=== PATIENT | female | born 1960 | race Caucasian/White ===

== ENCOUNTER 2018-05-06 20:11 | Emergency (ER) | payer OTHER ==
--- OUTSIDE RECORDS SUMMARY | 2018-05-06 20:14 | XMS REPORT | Clinical Summary ---
:1960 Author Organization [facility] Address [address] [place] [address] Care Team Providers Name Role Phone Nicole Gates MD Primary Care Provider Unavailable Allergies No Known Allergies Current Medications Prescription Sig. Disp. Refills Start Date End Date Status levothyroxine Take 1 tablet 90 tablet 3 05/28/2017 Active (SYNTHROID, LEVOXYL) (125 mcg 125 mcg total) by tabletIndications: mouth daily. Other specified hypothyroidism rosuvastatin Take 1 tablet 90 tablet 3 06/03/2017 Active (CRESTOR) 5 MG (5 mg total) tabletIndications: by mouth Dyslipidemia daily. ERGOCALCIFEROL, Take by mouth. Active VITAMIN D2, (VITAMIN D2 ORAL)Indications: Well woman exam CALCIUM Take by mouth. Active CARBONATE/VITAMIN D3 (CALCIUM 500 + D ORAL)Indications: Well woman exam nystatin-triamcinolo Apply 30 g 0 07/29/2017 Active ne (MYCOLOG II) topically 2 8 100,000-0.1 unit/g-% (two) times a creamIndications: day. Yeast infection nitrofurantoin, Macrobid 14 capsule 0 01/02/2016 Discontinued macrocrystal-monohyd generic: Oral: 7 rate, (MACROBID) 100 100 mg twice MG capsule daily for 7 days levothyroxine Take 1 tablet 90 tablet 0 03/21/2017 Discontinued (SYNTHROID, LEVOXYL) (125 mcg 7 125 mcg total) by tabletIndications: mouth once Hypothyroidism daily. Needs office visit rosuvastatin Take 1 tablet 10 tablet 0 04/17/2017 Discontinued (CRESTOR) 5 MG (5 mg total) 7 tabletIndications: by mouth every Dyslipidemia other day. Needs office visit rosuvastatin Take 1 tablet 90 tablet 3 05/28/2017 Discontinued (CRESTOR) 5 MG (5 mg total) 7 tabletIndications: by mouth every Dyslipidemia other day. Active Problems Problem Noted Date Dyslipidemia 05/28/2017 Hypothyroidism 04/07/2014 Schatzki's ring 09/22/2004 Hyperlipidemia Resolved Problems Problem Noted Date Resolved Date Well woman exam 07/29/2017 08/01/2017 Idiopathic familial dystonia 06/09/2015 05/28/2017 Cramp of limb 04/07/2015 05/28/2017 Multiple-type hyperlipidemia 04/07/2015 05/28/2017 Indigestion 04/07/2014 05/28/2017 Terminal esophageal web 04/07/2014 05/28/2017 Encounters Date Type Specialty Care Team Description 05/04/2018 Telephone Pain Medicine Hema Sharif MA 04/23/2018 Office Visit Pain Medicine Jes[place], Lumbar radiculopathy ( Primary Dx); Aleksander Spangler, Other chronic pain; Neuropathic pain; Spinal stenosis of lumbosacral region 04/09/2018 Procedure visit Pain Medicine [place], Lumbar radiculopathy Aleksander Spangler (Primary Dx) 03/31/2018 Office Visit Pain Medicine [place], Lumbar radiculopathy ( Primary Dx); Aleksander Spangler Other chronic pain; Spinal stenosis of lumbosacral region; Neuropathic pain 03/17/2018 Procedure visit Pain Medicine [place], Lumbar radiculopathy Aleksander Spangler (Primary Dx) 03/10/2018 Office Visit Pain Medicine Rocco, Lumbar radiculopathy ( Primary Dx); Yovani Maldonado MD Other chronic pain; [place], Spinal stenosis of lumbosacral region Aleksander Spangler MD 03/06/2018 Telephone Sports Medicine Marisabel Peguero MA 03/06/2018 Orders Only Sports Medicine [place], Lumbar radiculitis ( Primary Dx); Yovani Maldonado MD Lumbar radiculopathy 03/04/2018 Office Visit Ortho Sports Medicine [place], Lumbar radiculopathy Yovani Maldonado MD (Primary Dx) 03/04/2018 Procedure Pass Radiology 11/26/2017 Office Visit Ortho Sports Medicine [place], Sacroiliac joint dysfunction (Primary Dx); Yovani Maldonado MD Left foot pain; Osteoarthritis of left midfoot 10/09/2017 Documentation Orthopedic Surgery Yovani Valiente MD 10/09/2017 Documentation Orthopedic Surgery Yovani Valiente MD 10/02/2017 Office Visit Sports Medicine [place]occo, Sacroiliac joint dysfunction (Primary Dx); Yovani Maldonado MD Left low back pain, unspecified chronicity, with sciatica presence unspecified 09/02/2017 Office Visit Orthopedic Surgery Liza, Right rotator cuff Vernon C., tendonitis (Primary MD Dx) 09/02/2017 Orders Only Orthopedic Surgery Tu, Left shoulder pain, Nickarr unspecified chronicity (Primary Dx) 07/29/2017 Office Visit Orthopedic Surgery Liza, Lateral Vernon C., epicondylitis, left MD elbow (Primary Dx) 07/29/2017 Office Visit Obstetrics and Dwight, Well woman exam (Primary Dx) ; Gynecology [place], Vulvar itching 07/29/2017 Telephone Obstetrics and Dwight, Yeast infection Gynecology Palak Antony (Primary Dx) 07/29/2017 Orders Only Orthopedic Surgery Tu, Left elbow pain Nickarr (Primary Dx) 07/22/2017 Telephone Cardiology Fortunato Gonzalez MA 07/16/2017 Hospital Encounter Procedural Cardiology Jose, Abnormal stress ECG with treadmill; Ziggy Paris Metabolic syndrome; Hyperlipidemia, unspecified hyperlipidemia type 07/16/2017 Office Visit Cardiology Kody, Metabolic syndrome (Primary Dx); Nicole Abnormal stress ECG with treadmill; MD Dawson Hyperlipidemia, unspecified hyperlipidemia type Ziggy Garcia MD 06/25/2017 Hospital Encounter Radiology Kody, Screening for Nicole osteoporosis MD Dawson 06/23/2017 Documentation Gastroenterology Maribel Rodriguez MA 06/17/2017 Telephone Family Medicine Nicole Gates MD 06/16/2017 Telephone Family Medicine Kody Abnormal stress ECG Nicole with treadmill MD Dawson (Primary Dx) 06/16/2017 Telephone Gastroenterology Mauricio Mac MD 06/02/2017 Telephone Internal Medicine Tomasa Mcdaniels MA 05/28/2017 Office Visit Family Medicine Kody, Well adult exam (Primary Dx) ; Nicole Other specified hypothyroidism; MD Dawson Dyslipidemia; Encounter for special screening examination for cardiovascular disorder ; Screening mammogram, encounter for; Screening for osteoporosis 05/28/2017 Telephone Family Medicine Nicole Gates MD after 05/05/2017 Immunizations Name Dates Previously Given Next Due Tdap 04/07/2014 Family History Medical History Relation Name Comments Diabetes Father Kwesi Type 2 Leukemia Father Kwesi Diabetes Maternal Grandfather Wellington Type 2 Stroke Maternal Grandfather Wellington Diabetes Mother Rachel Mojica Type 2 Diabetes Sister Rachel Granados Diabetes Sister Shari Type1 Relation Name Status Comments Father Kwesi Maternal Grandfather Wellington Maternal Grandmother Mother Rachel Mojica Alive Sister Rachel Mccarthy Social History Tobacco Use Types Packs/Day Years Used Date Never Smoker Smokeless Tobacco: Never Used Tobacco Cessation: Counseling Given: Yes Alcohol Use Drinks/Week oz/Week Comments No Sex Assigned at Date Recorded Not on file Last Filed Vital Signs Vital Sign Reading Time Taken Blood Pressure 109/71 04/23/2018 2:22 PM CDT Pulse 90 04/23/2018 2:22 PM CDT Temperature 36.6 C (97.9 F) 05/28/2017 8:12 AM CDT Respiratory Rate 14 05/28/2017 8:12 AM CDT Oxygen Saturation 97% 07/16/2017 4:53 PM CDT Inhaled Oxygen Concentration - - Weight 82 kg (180 lb 12.8 oz) 04/23/2018 2:22 PM CDT Height 160 cm (5' 3") 07/29/2017 11:17 AM APPLICATION SYSTEMS ADMINISTRATOR Body Mass Index 32.03 04/23/2018 2:22 PM CDT Plan of Treatment Date Type Specialty Care Team Description 05/12/2018 Procedure visit Pain Medicine Aleksander Ba MD [address] [address] Health Maintenance Due Date Last Done Comments SHINGRIX VACCINE (#1) 2008 INFLUENZA VACCINE 04/22/2018 BREAST CANCER SCREENING 09/17/2018 09/17/2016 CERVICAL CANCER SCREENING 07/29/2020 07/29/2017, 09/22/2013 COLON CANCER SCREENING 09/22/2021 09/22/2011 Procedures Procedure Name Priority Date/Time Associated Diagnosis Comments MRI LUMBAR SPINE WO Routine 03/05/2018 1:22 Lumbar radiculopathy Results for this CONTRAST PM CDT procedure are in the results section. XR FOOT 3+ VW LEFT Routine 11/26/2017 9:43 Left foot pain Results for this AM APPLICATION SYSTEMS ADMINISTRATOR procedure are in the results section. XR LUMBAR SPINE 2 OR 3 Routine 10/02/2017 10:21 Left low back pain, Results for this VW AM APPLICATION SYSTEMS ADMINISTRATOR unspecified procedure are in chronicity, with the results sciatica presence section. unspecified XR HIP 2-3 VIEWS LEFT Routine 10/02/2017 10:21 Left low back pain, Results for this AM APPLICATION SYSTEMS ADMINISTRATOR unspecified procedure are in chronicity, with the results sciatica presence section. unspecified XR SHOULDER 2+ VW LEFT Routine 09/02/2017 1:45 Left shoulder pain, Results for this PM APPLICATION SYSTEMS ADMINISTRATOR unspecified procedure are in chronicity the results section. POC OCCULT BLOOD STOOL Routine 07/29/2017 4:15 Well woman exam Results for this PM APPLICATION SYSTEMS ADMINISTRATOR procedure are in the results section. THINPREP TIS PAP AND Routine 07/29/2017 4:12 Results for this HPV MRNA E6/E7 REFLEX PM APPLICATION SYSTEMS ADMINISTRATOR procedure are in HPV 16,18/45 the results section. PAP W/AGE BASED Routine 07/29/2017 4:12 Well woman exam Results for this SCREENING PROTOCOLS PM APPLICATION SYSTEMS ADMINISTRATOR procedure are in the results section. SC INJECT TENDON Routine 07/29/2017 3:06 Lateral Results for this ORIGIN/INSERT PM APPLICATION SYSTEMS ADMINISTRATOR epicondylitis, left procedure are in elbow the results section. XR ELBOW 3+ VW LEFT Routine 07/29/2017 2:30 Left elbow pain Results for this PM APPLICATION SYSTEMS ADMINISTRATOR procedure are in the results section. CV CTA CORONARY Routine 07/16/2017 5:39 Abnormal stress ECG Results for this ARTERIES W CONTRAST PM CDT with treadmill procedure are in Metabolic syndrome the results Hyperlipidemia, section. unspecified hyperlipidemia type ESTIMATED GFR Routine 07/16/2017 5:39 Results for this PM CDT procedure are in the results section. CREATININE LEVEL Routine 07/16/2017 5:39 Results for this PM CDT procedure are in the results section. CREATININE LEVEL Routine 07/16/2017 4:39 Results for this PM CDT procedure are in the results section. ESTIMATED GFR Routine 07/16/2017 4:39 Results for this PM CDT procedure are in the results section. ECG 12-LEAD Routine 07/16/2017 9:13 Abnormal stress ECG Results for this AM CDT with treadmill procedure are in the results section. BONE DENSITY Routine 06/25/2017 10:36 Screening for Results for this AM CDT osteoporosis procedure are in the results section. ECHOCARDIOGRAM 2D Routine 06/16/2017 3:16 Encounter for special Results for this COMPLETE W MMODE PM CDT screening examination procedure are in SPECTRAL COLOR DOPPLER for cardiovascular the results (96999) disorder section. CV TREADMILL STRESS Routine 06/16/2017 3:11 Encounter for special Results for this TEST PM CDT screening examination procedure are in for cardiovascular the results disorder section. T4, FREE Routine 05/28/2017 9:02 Other specified Results for this AM CDT hypothyroidism procedure are in Well adult exam the results section. T3 Routine 05/28/2017 9:02 Other specified Results for this AM CDT hypothyroidism procedure are in Well adult exam the results section. URINALYSIS, AUTOMATED Routine 05/28/2017 9:02 Well adult exam Results for this WITH MICROSCOPY AM CDT procedure are in the results section. THYROID STIMULATING Routine 05/28/2017 9:02 Other specified Results for this HORMONE AM CDT hypothyroidism procedure are in Well adult exam the results section. LIPID PANEL Routine 05/28/2017 9:02 Dyslipidemia Results for this AM CDT Well adult exam procedure are in the results section. HEMOGLOBIN A1C Routine 05/28/2017 9:02 Well adult exam Results for this AM CDT procedure are in the results section. COMPREHENSIVE Routine 05/28/2017 9:02 Well adult exam Results for this METABOLIC PANEL AM CDT procedure are in the results section. CBC WITH PLATELET AND Routine 05/28/2017 9:02 Well adult exam Results for this DIFFERENTIAL AM CDT procedure are in the results section. ECG 12-LEAD Routine 05/28/2017 8:10 Encounter for special Results for this AM CDT screening examination procedure are in for cardiovascular the results disorder section. after 05/05/2017 Results MRI Lumbar Spine Wo Contrast (03/05/2018 1:22 PM) Narrative Performed At EXAMINATION: MRI LUMBAR SPINE WO CONTRAST [facility] CLINICAL HISTORY: M54.16 Radiculopathylumbar region, Persisting lower back pain with radiation down the left leg. Concern for left sided nerve root entrapment.No relief with a sacroiliac joint injection. COMPARISON:Lumbar spine x-ray dated October 02, 2017 TECHNIQUE: Multiplanar multisequence noncontrast enhanced examination was performed of the Lumbar spine. FINDINGS: Vertebral body heights are maintained without acute fracture. No focal significant marrow signal abnormality is appreciated. Soft tissues shows no mass , adenopathy or aneurysm. The partially visualized spinal cord and the conus are unremarkable. There is exaggeration of lumbar lordosis. There is mild 3 mm the L4 and L5. Axial images through the disc spaces demonstrate the following: L1-L2: There is some mild facet hypertrophy and anterior osteophytosis. The canal, lateral recesses and foramina are widely patent. L2-L3: There is disc desiccation with disc bulge and facet hypertrophy. There is minimal effacement of the thecal sac without stenosis. The lateral recesses are widely patent. The foramina are patent. L3-L4: There is disc desiccation with disc bulge and facet hypertrophy with mild effacement of the ventral thecal sac and very mild narrowing of the lateral recesses. Disc osteophyte complex and facet changes minimally narrow the inferior foramina without stenosis. L4-L5: There is grade 1 anterolisthesis of L4 with diffuse disc bulge and significant facet spurring, hypertrophy and ligamentum flavum hypertrophy. There is severe narrowing of the lateral recesses and thecal sac which has a triangular appearance. There is effacement of the CSF. Correlate for encroachment of the descending L5 nerve roots, left greater than right. Facet spurring and osteophytosis results in mild narrowing of bilateral foramina. L5-S1: There is disc bulge with facet hypertrophy and posterior central disc protrusion resulting in mild canal narrowing and bilateral lateral recess narrowing. Facet spurring results in mild narrowing of the inferior foramina. No significant posterior disc disease, spinal canal or neural foraminal stenosis at other visualized levels. IMPRESSION: There is multilevel spondylosis most prominent at L4-5 with severe canal and bilateral lateral recess stenosis. Correlate for encroachment of the descending L5 nerve roots and cauda equina nerve roots. Other levels of less significant spondylosis and stenosis are detailed above. [id number] Procedure Note Hm Interface, Radiology Results 03/05/2018 1:41 PM CDT EXAMINATION: MRI LUMBAR SPINE WO CONTRAST CLINICAL HISTORY: M54.16 Radiculopathy lumbar region, Persisting lower back pain with radiation down the left leg. Concern for left sided nerve root entrapment. No relief with a sacroiliac joint injection. COMPARISON: Lumbar spine x-ray dated October 02, 2017 TECHNIQUE: Multiplanar multisequence noncontrast enhanced examination was performed of the Lumbar spine. FINDINGS: Vertebral body heights are maintained without acute fracture. No focal significant marrow signal abnormality is appreciated. Soft tissues shows no mass , adenopathy or aneurysm. The partially visualized spinal cord and the conus are unremarkable. There is exaggeration of lumbar lordosis. There is mild 3 mm the L4 and L5. Axial images through the disc spaces demonstrate the following: L1-L2: There is some mild facet hypertrophy and anterior osteophytosis. The canal, lateral recesses and foramina are widely patent. L2-L3: There is disc desiccation with disc bulge and facet hypertrophy. There is minimal effacement of the thecal sac without stenosis. The lateral recesses are widely patent. The foramina are patent. L3-L4: There is disc desiccation with disc bulge and facet hypertrophy with mild effacement of the ventral thecal sac and very mild narrowing of the lateral recesses. Disc osteophyte complex and facet changes minimally narrow the inferior foramina without stenosis. L4-L5: There is grade 1 anterolisthesis of L4 with diffuse disc bulge and significant facet spurring, hypertrophy and ligamentum flavum hypertrophy. There is severe narrowing of the lateral recesses and thecal sac which has a triangular appearance. There is effacement of the CSF. Correlate for encroachment of the descending L5 nerve roots, left greater than right. Facet spurring and osteophytosis results in mild narrowing of bilateral foramina. L5-S1: There is disc bulge with facet hypertrophy and posterior central disc protrusion resulting in mild canal narrowing and bilateral lateral recess narrowing. Facet spurring results in mild narrowing of the inferior foramina. No significant posterior disc disease, spinal canal or neural foraminal stenosis at other visualized levels. IMPRESSION: There is multilevel spondylosis most prominent at L4-5 with severe canal and bilateral lateral recess stenosis. Correlate for encroachment of the descending L5 nerve roots and cauda equina nerve roots. Other levels of less significant spondylosis and stenosis are detailed above. [facility]-[id number] Performing Organization Address City/State/Zipcode Phone Number [facility] [address] [place] [address] XR Foot 3+ Vw Left (11/26/2017 9:43 AM) Narrative Performed At 3 views of the left foot show small osteophyte formation at the dorsal [facility] midfoot. A bunion type deformity is noted bilaterally. There is a traction spur at the Achilles and plantar fascia attachment. No fractures are noted. Impression: Bunion deformity, mild midfoot osteoarthritis. Performing Organization Address [facility] Phone Number [facility] [address] [place] [address] XR Lumbar Spine 2 Or 3 Vw (10/02/2017 10:21 AM) Narrative Performed At 2 views of the lumbar spine show no acute fractures or compression HM [facility] fractures. Disc spaces are well preserved. Normal spinal curvature is preserved. Small osteophytes are noted at the anterior aspect of the L1 vertebra. Performing Organization Address [facility] [place] Phone Number [facility] [address] [place] [address] XR Hip 2-3 View Left (10/02/2017 10:21 AM) Narrative Performed At 3 views of the left hip show mild narrowing at the femoroacetabular joint HM [facility] without large osteophyte formation. No fractures are noted. There is osteophyte formation at the inferior aspect of the sacroiliac joint. The pubic symphysis appears normal. Impression: Mild left hip osteoarthritis. Left sacroiliac joint degenerative change. Performing Organization Address [facility] [place] Phone Number [facility] [address] [place] [address] XR Shoulder 2+ Vw Left (09/02/2017 1:45 PM) Narrative Performed At Four views (true AP, axillary, outlet, and Zanca views) of the left HM [facility] shoulder are obtained and reviewed today.The glenohumeral and AC joints appear normal.There is no evidence of dislocation, fracture, or significant degenerative change. No abnormal soft tissue calcifications are seen. Performing Organization Address [facility] Phone Number [facility] [address] [place] [address] POC occult blood stool (07/29/2017 4:15 PM) Fecal Occult Blood Negative Negative Specimen Stool PAP W/AGE BASED SCREENING PROTOCOLS (07/29/2017 4:12 PM) Comment [facility] Comment: This order for age-based cervical cancer and STI screening follows ACOG guidelines(PB 168, 140, DLT470). See individual assays for performing site location. Specimen Swab Resulting Agency Comment Performing Organization Information: Site ID: [id number] Name: [facility] Address: [address] [place] [address] Director: Dr. Chris Workman Performing Organization Address City/[facility]/Zipcode Phone Number [address] [address] THINPREP TIS PAP AND HPV mRNA E6/E7 REFLEX HPV 16,18/45 (07/29/2017 4:12 PM) Clinical information None given [facility] [place] Date of last menstrual NONE GIVEN [facility] period [place] Prev. pap: NONE GIVEN [facility] [place] Prev. bx: NONE GIVEN [facility] [place] Source None given [facility] [place] Statement of adequacy [facility] Comment: [place] Satisfactory for evaluation. Endocervical/transformation zone component present. Interpretation/result: Comment: Negative for [facility] intraepithelial lesion or [place] malignancy. Comment [facility] Comment: [place] This Pap test has been evaluated with computer assisted technology. Moving Picture [employer] [facility] Comment: [place] KXJ, CT(ASCP) CT screening location: [address] [address] HPV mRNA e6/e7 Not Detected Not Detected [facility] Comment: [place] This test was performed using the APTIMA HPV Assay ([employer] This assay detects E6/E7 viral messenger RNA (mRNA) from 14 high-risk HPV types (16,18,31,33,35,39,45,51,52,56,58,59,66,68). Resulting Agency Comment Performing Organization Information: Site ID: [id number] Name: [facility] Address: [address] [place] [address] Director: Abigail Haas MD Performing Organization Address [facility]/Zipcode Phone Number [address] [address] Injection tendon or ligament (07/29/2017 3:06 PM) Narrative Performed At Vernon De Jesus MD 07/29/20173:06 PM Injection tendon or ligament Date/Time: 07/29/2017 2:58 PM Performed by: VERNON DE JESUS Authorized by: VERNON DE JESUS Consent: Consent obtained:Verbal Consent given by:Patient Risks discussed:Bleeding and infection Alternatives discussed:Observation and alternative treatment Pre-procedure details: Preparation: Patient was prepped and draped in usual sterile fashion Procedure details: Type of injection:Tendon origin Location:Elbow Elbow location: L lateral epicondyle Post-procedure details: Patient tolerance of procedure:Tolerated well, no immediate complications XR Elbow 3+ Vw Left (07/29/2017 2:30 PM) Narrative Performed At Three views (AP, lateral, and cubital tunnel) of the left elbow are [facility] obtained and reviewed today.Normal valgus alignment is seen.No posterior fat pad sign is seen.There is no evidence of fracture, dislocation, or loose bodies.No OCD or significant degenerative changes are seen. Performing Organization Address City/State/Zipcode Phone Number [facility] [address] [place] [address] Cv cta coronary arteries w contrast (07/16/2017 5:39 PM) Narrative Performed At [facility] Nuclear Cardiology and Cardiac CT [address] [place] [address] CTA Coronary Arteries Report Pat.Name:CATERINA SCHWAB.ID:[id number] .Date: 07/16/2017Refer.MD:ZIGGY GARCIA MD Exam Time: 4:50:00 PMStudy Type:CTA Coronary Arteries Height:63inWeight: 175lb BSA: 1.83 m2 DOBAge:1960,56Y Sex: FEMALEHR:68 bpm Nuclear Tech:Abran Stephenson, RT(NM)(CT), [facility] Pat. Stat.:Outpatient CPT - 4: CCTA w Thoracic Aorta (NonCongenital) [id number] Nuclear Event ID:[id number] Order ID:[id number] Reason for Study:Abnormal stress test, Hyperlipidemia Procedures:CTA Coronary Arteries SUMMARY: Technique: IV contrast was administered and sequential 0.[address] cuts were obtained through the chest [facility]. Post-processing and 3D reconstruction were done using the [employer] workstation. Interactive image viewing and volumetric display and analysis were also performed. CTA RESULTS Left Main: A normal sized3.7 mm artery which arises normally from the left sinus of Valsalva and divides into the left anterior descending, circumflex, and ramus coronary arteries. No significant atherosclerotic plaque is present. Left anterior descending (LAD): A normal sized 3.6mm artery which wraps around the apex and gives off one diagonal branch. Mild non calcified atherosclerotic plaque is present in the proximal segment but without significant stenosis. The first diagonal is a 1.5 mm artery which has no significant atherosclerotic plaque. Left circumflex: A normal sized 2.6 mm non-dominant artery which gives off one major obtuse marginal artery before terminating in the AV groove. No significant atherosclerotic plaque is present. The first obtuse marginal is a 1.9 mm artery which has no significant atherosclerotic plaque. Right coronary artery: A normal sized 4.0 mm dominant artery which arises normally from the right sinus of Valsalva and gives off several right ventricular branches, the posterior descending artery and the posterolateral artery.Mild calcified and non calcified atherosclerotic plaque is present in the proximal and mid segments but without significant stenosis. The first posterior descending is a 2.2 mm artery which has no significant atherosclerotic plaque. The second posterior descending is a 1.5 mm artery which has no significant atherosclerotic plaque. The posterolateral branch is a 2.6 mm bifurcating artery which has no significant atherosclerotic plaque. Ramus: A 1.7 mm artery which has no significant atherosclerotic plaque. Stents: None. Bypass Grafts: None. Pulmonary Arteries: Normal pulmonary artery sizes with no proximal thrombus identified. Left Atrial and Pulmonary Vein(PV) Dimensions: Left atrial size (A-P diameter) 3.7 cm. Variant PV anatomy Left superior PV12 mm. Left middle PV7 mm. Left inferior PV10 mm. Right superior PV15 mm. Right inferior PV16 mm. There is no evidence of the left atrial appendage clot. Left Ventricular Valve Morphology/Function: Aortic valve is tri-leaflet and there is no evidence of stenosis. Mitral valve is normal without significant regurgitation. Thoracic Aortic Dimensions: No aortic aneurysm or dissection is seen. Aortic root: 3.0 cm. Sinotubular junction 2.5 cm. Mid ascending thoracic aorta 3.0 cm. Descending thoracic aorta 2.1 cm. Pericardium: No pericardial effusion or pericardial thickening. Non-Cardiac Findings: Large hiatal hernia. Bibasilar atelectasis. CONCLUSION CT coronary angiography shows coronary artery atherosclerosis but no significant coronary artery stenosis. Variant PV anatomy There is no evidence of the left atrial appendage clot. Large hiatal hernia Bibasilar atelectasis STUDY QUALITY The study quality is good. COMMENTS: None. The above report was based on a dedicated Cardiovascular CTA Protocol and interpreted by a [employer] Machine Tender.Should a more comprehensive assessment of non-cardiovascular findings be desired, please consult a radiologist.These images are available in the [facility] [employer] PACS system. Signed 07/16/2017 07:03 PM Ziggy Garcia MD Procedure Note Interface, Radiology Results In - 07/16/2017 7:03 PM CDT Nuclear Cardiology and Cardiac CT [address] [place] [address] CTA Coronary Arteries Report Pat.Name: CATERINA SCHWAB Pat.ID: [id number] .Date: 07/16/2017 Refer.MD: ZIGGY GARCIA MD Exam Time: 4:50:00 PM Study Type:CTA Coronary Arteries Height: 63in Weight: 175lb BSA: 1.83 m2 Age: 8 1960,56Y Sex: FEMALE HR: 68 bpm Nuclear Tech:Abran Stephenson RT(SD)(CT), [facility] Pat. Stat.:Outpatient CPT - 4: CCTA w Thoracic Aorta (NonCongenital) [id number] Nuclear Event ID:[id number] Order ID: [id number] Reason for Study:Abnormal stress test, Hyperlipidemia Procedures:CTA Coronary Arteries SUMMARY: Technique: IV contrast was administered and sequential 0.[address] cuts were obtained through the chest using the Siemens Somatom Force CT scanner. Post-processing and 3D reconstruction were done using the [employer] workstation. Interactive image viewing and volumetric display and analysis were also performed. CTA RESULTS Left Main: A normal sized 3.7 mm artery which arises normally from the left sinus of Valsalva and divides into the left anterior descending, circumflex, and ramus coronary arteries. No significant atherosclerotic plaque is present. Left anterior descending (LAD): A normal sized 3.6mm artery which wraps around the apex and gives off one diagonal branch. Mild non calcified atherosclerotic plaque is present in the proximal segment but without significant stenosis. The first diagonal is a 1.5 mm artery which has no significant atherosclerotic plaque. Left circumflex: A normal sized 2.6 mm non-dominant artery which gives off one major obtuse marginal artery before terminating in the AV groove. No significant atherosclerotic plaque is present. The first obtuse marginal is a 1.9 mm artery which has no significant atherosclerotic plaque. Right coronary artery: A normal sized 4.0 mm dominant artery which arises normally from the right sinus of Valsalva and gives off several right ventricular branches, the posterior descending artery and the posterolateral artery. Mild calcified and non calcified atherosclerotic plaque is present in the proximal and mid segments but without significant stenosis. The first posterior descending is a 2.2 mm artery which has no significant atherosclerotic plaque. The second posterior descending is a 1.5 mm artery which has no significant atherosclerotic plaque. The posterolateral branch is a 2.6 mm bifurcating artery which has no significant atherosclerotic plaque. Ramus: A 1.7 mm artery which has no significant atherosclerotic plaque. Stents: None. Bypass Grafts: None. Pulmonary Arteries: Normal pulmonary artery sizes with no proximal thrombus identified. Left Atrial and Pulmonary Vein (PV) Dimensions: Left atrial size (A-P diameter) 3.7 cm. Variant PV anatomy Left superior PV12 mm. Left middle PV 7 mm. Left inferior PV10 mm. Right superior PV15 mm. Right inferior PV16 mm. There is no evidence of the left atrial appendage clot. Left Ventricular Valve Morphology/Function: Aortic valve is tri-leaflet and there is no evidence of stenosis. Mitral valve is normal without significant regurgitation. Thoracic Aortic Dimensions: No aortic aneurysm or dissection is seen. Aortic root: 3.0 cm. Sinotubular junction 2.5 cm. Mid ascending thoracic aorta 3.0 cm. Descending thoracic aorta 2.1 cm. Pericardium: No pericardial effusion or pericardial thickening. Non-Cardiac Findings: Large hiatal hernia. Bibasilar atelectasis. CONCLUSION CT coronary angiography shows coronary artery atherosclerosis but no significant coronary artery stenosis. Variant PV anatomy There is no evidence of the left atrial appendage clot. Large hiatal hernia Bibasilar atelectasis STUDY QUALITY The study quality is good. COMMENTS: None. The above report was based on a dedicated Cardiovascular CTA Protocol and interpreted by a [employer] Machine Tender. Should a more comprehensive assessment of non-cardiovascular findings be desired, please consult a radiologist. These images are available in the [facility] [employer] PACS system. Signed 07/16/2017 07:03 PM Ziggy Garcia MD Performing Organization Address City/[facility]/Zipcode Phone Number [facility] [address] [place] [address] Estimated GFR (07/16/2017 5:39 PM)Only the most recent of2 resultswithin the time period is included. GFR Non Af Amer 64 mL/min/1.73 m2 [facility] DEPARTMENT OF PATHOLOGY AND [employer] MEDICINE GFR Af Amer 78 mL/min/1.73 m2 [facility] DEPARTMENT OF Comment: PATHOLOGY AND GENOMIC Chronic kidney disease: <60 mL/min/1.73m2 MEDICINE Kidney failure: <15 mL/min/1.73m2 The estimated GFR is calculated from the IDMS-traceable Modification of Diet in Renal Disease Equation. The accuracy of the calculation is poor when the creatinine is normal. Calculated values >90 mL/min/1.73m2 are not reported. This equation has not been validated in children (<18 years), women, the elderly (>70 years), or ethnic groups other than Caucasians and Americans. Specimen Plasma specimen Performing Organization Address City/[facility]/Zipcode Phone Number [facility] DEPARTMENT OF PATHOLOGY AND [address] [place] [address] [employer] Creatinine level (07/16/2017 5:39 PM)Only the most recent of2 resultswithin the time period is included. Creatinine 0.9Comment: Testing performed 0.5 - 0.9 mg/dL [facility] DEPARTMENT OF PATHOLOGY on the [employer] instrument by [employer] Tech [id number]. Specimen Plasma specimen Performing Organization Address [facility] Phone Number [facility] DEPARTMENT OF PATHOLOGY AND [address] [place] [address] GENOMIC MEDICINE ECG 12 lead (07/16/2017 9:13 AM)Only the most recent of2 resultswithin the time period is included. Ventricular rate 78 [facility] Atrial rate 78 [facility] SC interval 162 [facility] QRSD interval 92 [facility] QT interval 394 [facility] QTC interval 449 [facility] M[facility] P axis 1 31 [facility]USE QRS axis 1 -12 [facility]USE T wave axis 26 [facility] M[facility] EKG impression Normal sinus rhythm-Minimal voltage criteria [facility] M[facility] for LVH, may be normal variant-Borderline ECG-In automated comparison with ECG of 28-MAY-2017 08:10,-No significant change was found- Performing Organization Address [facility] Phone Number [facility] [address] [place] [address] Bone Density (06/25/2017 10:36 AM) Narrative Performed At EXAMINATION: RADIANT BONE DENSITY CLINICAL HISTORY: Z13.820 Encounter for screening for osteoporosis, COMPARISON: None. The results of this study expressed as bone mineral density (BMD) were as follows: AP spine (L1-L4) BMD: 1.186 g/cm2 T-Score: 0.0 Dual Femur (Total Mean): BMD: 0.849 g/cm2 T-Score: -1.3 IMPRESSION: Bone mineral density values in the lumbar spine are probably falsely elevated secondary to sclerotic degenerative changes at L3 and L4. L1 and L2 demonstrate a average bone mineral density of 1.079 with a T score of -0.8 (borderline osteopenic). Comparing to the TBS score at L1-L4 is 1.351, with a TBS T score of -1.3 (osteopenic). L1-L2 is 1.356, with a TBS T score of -1.4. These values correlate better with the bone mineral density values, suggesting findings at L3-4 are due to degenerative changes. The femoral necks demonstrate the greatest degree of bone density loss, with the left having a T score of -1.8, the right, -1.7, both values are osteopenic. A copy of this scans including a report detailing these results will follow. Note: The world health organization (WHO) has classified the patient's T-score as follows: Above (-1) as normal (-1) to (-2.5) as low (osteopenia) Below (-2.5) as abnormally low (osteoporosis, increased fracture risk) Dual femur FRAX: Risk factors: None. 10 year probability of fracture: 1.Major osteoporotic: 8.2% 2.Hip: 0.8% 3.Based on dual femur left neck BMD [id number] Procedure Note Hm Interface, Radiology Results Incoming - 06/25/2017 10:47 AM CDT EXAMINATION: BONE DENSITY CLINICAL HISTORY: Z13.820 Encounter for screening for osteoporosis, COMPARISON: None. The results of this study expressed as bone mineral density (BMD) were as follows: AP spine (L1-L4) BMD: 1.186 g/cm2 T-Score: 0.0 Dual Femur (Total Mean): BMD: 0.849 g/cm2 T-Score: -1.3 IMPRESSION: Bone mineral density values in the lumbar spine are probably falsely elevated secondary to sclerotic degenerative changes at L3 and L4. L1 and L2 demonstrate a average bone mineral density of 1.079 with a T score of -0.8 (borderline osteopenic). Comparing to the TBS score at L1-L4 is 1.351, with a TBS T score of -1.3 ( osteopenic). L1-L2 is 1.356, with a TBS T score of -1.4. These values correlate better with the bone mineral density values, suggesting findings at L3-4 are due to degenerative changes. The femoral necks demonstrate the greatest degree of bone density loss , with the left having a T score of -1.8, the right, -1.7, both values are osteopenic. A copy of this scans including a report detailing these results will follow. Note: The world health organization (WHO) has classified the patient's T-score as follows: Above (-1) as normal (-1) to (-2.5) as low (osteopenia) Below (-2.5) as abnormally low (osteoporosis, increased fracture risk) Dual femur FRAX: Risk factors: None. 10 year probability of fracture: 1. Major osteoporotic: 8.2% 2. Hip: 0.8% 3. Based on dual femur left neck BMD [id number] Performing Organization Address City/State/Zipcode Phone Number [facility] [address] [place] [address] Echocardiogram complete w contrast and 3D if needed (06/16/2017 3:16 PM) Narrative Performed At [facility] Echocardiography Report Pat.Name:CATERINA SCHWAB Pat.ID:[id number] .Date: 06/16/2017 Refer.MD:NICOLE GATES MD Exam Time: 2:39:00 PMStudy Type:Routine Echo Height:63inWeight: 177lb BSA: 1.84 m2 DOBAge:1960,56Y Sex: FEMALEBP:130/71 HR:84 bpm Sonogrphr: Amado Fortune, RDCS, RVS Pat. Stat.:OutpatientRoom:[facility] TapeVol: MDCA, ICD - 9: Z13.6 Study Status:Final Echo Event ID:[id number] Order ID:[id number] Reason for Study:Screening Examination for Cardiovascular Disorders Procedures:2D Echo, Colorflow Doppler Race: FINDINGS: LV: LV size is normal. LV systolic function is normal. Overall wallmotion is normal. Estimated EF is 65-69% RV: RV size is normal. RV systolic function is normal. LA: LA size is normal. RA: RA size is normal. AO: Aortic root diameter is normal. LAKESHA: No pericardial effusion. AV: No structural AV abnormalities noted. MV: No structural MV abnormalities noted. A trace of mitral regurgitation. PV: No structural PV abnormalities noted. A trace of pulmonic regurgitation. TV: No structural TV abnormalities noted. A trace of tricuspid regurgitation Clinton: LV relaxation is reduced, appropriate for age. LV filling pressureis normal. Other:Insufficient TR jet to estimate PA systolic pressure. MEASUREMENTS: 2D Parasternal [place] LVOT 1.9 cmLA Ds4.1 cm LVIDd3.6 cmIndex2 cm/m Ao An1.9 cm LVIDs2.1 cmAo Rtd 2.9 cm Index1.6 cm/m LV%fs 40.4 % LV Unfn268 g(87-129) IVSd 1 cmLVM Index 56.5 g/m2 LVPWd0.9 cmRWT0.5 LA Sng Plane LA Area 14.6 cm2(8.8-23.4) LA Vol38 ml Index20.7 ml/m LA LngAx 4.7 cm RA Sng Plane RA Area 12.9 cm2(8.3-19.5) RA Vol32.3 ml Index17.5 ml/m RA LngAx 4.4 cm Aorta Ao Asc 3.1 cm (2.1-3.4) DOPPLER LVOT Stroke Vol LVOT 1.9 cmLVOT CO4.8 l/min LVOT TVI21 cmLVOT CI2.6 l/m/m2 LVOT Tm304 mplxIF19 bpm LVOT SV 59.6 ml Signed 06/17/2017 03:58 PM Jerri Dawn MD Procedure Note Interface, Radiology Results In - 06/17/2017 3:58 PM CDT [facility] Echocardiography Report Pat.Name: CATERINA SCHWAB Pat.ID: [id number] .Date: 06/16/2017 Refer.MD: NICOLE GATES MD Exam Time: 2:39:00 PM Study Type:Routine Echo Height: 63in Weight: 177lb BSA: 1.84 m2 Age: 8 1960,56Y Sex: FEMALE BP: 130/71 HR: 84 bpm Sonogrphr: Amado Fortune, RDCS, RVS Pat. Stat.:Outpatient Room: [facility] Tape Vol: MDCA, ICD - 9: Z13.6 Study Status:Final Echo Event ID:[id number] Order ID: [id number] Reason for Study:Screening Examination for Cardiovascular Disorders Procedures:2D Echo, Colorflow Doppler Race: FINDINGS: LV: LV size is normal. LV systolic function is normal. Overall wall motion is normal. Estimated EF is 65-69% RV: RV size is normal. RV systolic function is normal. LA: LA size is normal. RA: RA size is normal. AO: Aortic root diameter is normal. LAKESHA: No pericardial effusion. AV: No structural AV abnormalities noted. MV: No structural MV abnormalities noted. A trace of mitral regurgitation. PV: No structural PV abnormalities noted. A trace of pulmonic regurgitation. TV: No structural TV abnormalities noted. A trace of tricuspid regurgitation Clinton: LV relaxation is reduced, appropriate for age. LV filling pressure is normal. Other: Insufficient TR jet to estimate PA systolic pressure. MEASUREMENTS: 2D Parasternal [place] LVOT 1.9 cm LA Ds 4.1 cm LVIDd 3.6 cm Index 2 cm/m Ao An 1.9 cm LVIDs 2.1 cm Ao Rtd 2.9 cm Index 1.6 cm/m LV%fs 40.4 % LV Mass 104 g (87-129) IVSd 1 cm LVM Index 56.5 g/m2 LVPWd 0.9 cm RWT 0.5 LA Sng Plane LA Area 14.6 cm2 (8.8-23.4) LA Vol 38 ml Index 20.7 ml/m LA LngAx 4.7 cm RA Sng Plane RA Area 12.9 cm2 (8.3-19.5) RA Vol 32.3 ml Index 17.5 ml/m RA LngAx 4.4 cm Aorta Ao Asc 3.1 cm (2.1-3.4) DOPPLER LVOT Stroke Vol LVOT 1.9 cm LVOT CO 4.8 l/min LVOT TVI 21 cm LVOT CI 2.6 l/m/m2 LVOT Tm 304 msec HR 80 bpm LVOT SV 59.6 ml Signed 06/17/2017 03:58 PM Jerri Dawn MD Performing Organization Address [facility] Phone Number [facility] [address] [place] [address] Cv stress test (06/16/2017 3:11 PM) Resting HR 77 [facility] M[facility] Resting BP 112 [facility] Peak MET Achieved 10.1 [facility] Protocol Name MARY [facility] Time in Exercise Phase 00:09:00 [facility] Max Systolic BP 185 [facility]USE Max Diastolic BP 80 [facility]USE Max Heart Rate 160 [facility]USE Max Predicted Heart Rate 162 [facility] M[facility] Target HR Formula (220 - Age)*85% H MUSE Test Indication Examination for cardiovascular [facility] M[facility] disorder Arrhy During Ex none H MUSE ECG Interp Before EX Normal H MUSE ECG Interp During Ex Ischemic ST segment changes with H MUSE stress Ex Summary Comment Positive stress test suggestive [facility] M[facility] of ischemia Chest Pain Statement none [facility] Overall HR Response to normal H MUSE Exercise Overall BP Response To NORMAL [facility] Exercise Reason for Termination Target heart rate H MUSE achieved/FATIGUE Stress Test Impression -Electronically Signed By [facility] Milvia RANGEL, Dana Reyes ([id number]) on 06/16/2017 5:52:06 PM Performing Organization Address [facility] Phone Number [facility] [address] [place] [address] Urinalysis, automated with microscopy (05/28/2017 9:02 AM) Color, UA YELLOW YELLOW [facility] [place] Appearance CLEAR CLEAR [facility] [place] Specific gravity, urine 1.023 1.001 - 1.035 [facility] [place] pH, urine 5.5 5.0 - 8.0 [facility] [place] Glucose, urine NEGATIVE NEGATIVE [facility] [place] Bilirubin, UA NEGATIVE NEGATIVE [facility] [place] Ketones, UA NEGATIVE NEGATIVE [facility] [place] Occult blood, urine NEGATIVE NEGATIVE [facility] [place] Protein, UA NEGATIVE NEGATIVE [facility] [place] Nitrite, UA NEGATIVE NEGATIVE [facility] [place] Leukocyte esterase, UA NEGATIVE NEGATIVE [facility] [place] WBC, UA 0-5 < OR=5 /HPF [facility] [place] RBC, UA NONE SEEN < OR=2 /HPF [facility] [place] Squamous epithelial cells, UA 0-5 < OR=5 /HPF [facility] [place] Bacteria, UA NONE SEEN NONE SEEN /HPF [facility] [place] Hyaline casts, UA NONE SEEN NONE SEEN /LPF [facility] [place] Specimen Urine Resulting Agency Comment Performing Organization Information: Site ID: [id number] Name: [facility] Address: [address] [place] [id number] Director: Abigail Haas MD Performing Organization Address City/[facility] Phone Number Client24 [address] [address] CBC with platelet and differential (05/28/2017 9:02 AM) WBC 5.5 3.8 - 10.8 Thousand/uL [facility] [place] RBC 4.89 3.80 - 5.10 Million/uL [facility] [place] HGB 14.9 11.7 - 15.5 g/dL [facility] [place] HCT 44.4 35.0 - 45.0 % [facility] [place] MCV 90.8 80.0 - 100.0 fL [facility] [place] MCH 30.5 27.0 - 33.0 pg [facility] [place] MCHC 33.6 32.0 - 36.0 g/dL [facility] [place] RDW 13.1 11.0 - 15.0 % [facility] [place] Platelet count 204 140 - 400 Thousand/uL [facility] [place] MPV 9.8 7.5 - 12.5 fL [facility] [place] Neutrophils, absolute 2,211 1,500 - 7,800 cells/uL [facility] [place] Lymphocytes, absolute 2,393 850 - 3,900 cells/uL [facility] [place] Monocytes, absolute 605 200 - 950 cells/uL [facility] [place] Eosinophils, absolute 242 15 - 500 cells/uL [facility] [place] Basophils, absolute 50 0 - 200 cells/uL [facility] [place] Neutrophils 40.2 % [facility] [place] Lymphocytes 43.5 % [facility] [place] Monocytes 11.0 % [facility] [place] Eosinophils 4.4 % [facility] [place] Basophils + RC 0.9 % [facility] [place] Specimen Blood Resulting Agency Comment Performing Organization Information: Site ID: [id number] Name: [facility] Address: [address] [place] [phone] Director: Abigail Haas MD Performing Organization Address City/State/[facility] Phone Number [address] [place] [address] T3 (05/28/2017 9:02 AM) T3 102 76 - 181 ng/dL [facility] [place] Specimen Blood Resulting Agency Comment Performing Organization Information: Site ID: [id number] Name: [facility] Address: [address] [place] [phone] Director: Abigail Haas MD Performing Organization Address [facility] Phone [place] [address] Thyroid stimulating hormone (05/28/2017 9:02 AM) TSH 2.15 0.40 - 4.50 mIU/L [facility] [place] Specimen Blood Resulting Agency Comment Performing Organization Information: Site ID: [id number] Name: [facility] Address: [address] [place] [phone] Director: Abigail Haas MD Performing Organization Address [facility] Phone [place] [address] T4, free (05/28/2017 9:02 AM) T4, free 1.3 0.8 - 1.8 ng/dL [facility] [place] Specimen Blood Resulting Agency Comment Performing Organization Information: Site ID: [id number] Name: [facility] Address: [address] [place] [phone] Director: Abigail Haas MD Performing Organization Address [facility] Phone [place] [address] Hemoglobin A1c (05/28/2017 9:02 AM) Hemoglobin A1C 5.8 (H) <5.7 % of total [facility] Comment: [facility] [place] For someone without known diabetes, a hemoglobin A1c value between 5.7% and 6.4% is consistent with prediabetes and should be confirmed with a follow-up test. For someone with known diabetes, a value <7% indicates that their diabetes is well controlled. A1c targets should be individualized based on duration of diabetes, age, comorbid conditions, and other considerations. This assay result is consistent with an increased risk of diabetes. Currently, no consensus exists regarding use of hemoglobin A1c for diagnosis of diabetes for children. Specimen Blood Resulting Agency Comment Performing Organization Information: Site ID: [id number] Name: [facility] Address: [address] [place] [phone] Director: Abigail Haas MD Performing Organization Address [facility] Phone Number [facility] [place] [address] [place] [address] Lipid panel (05/28/2017 9:02 AM) Cholesterol, total 226 (H) <200 mg/dL [facility] [place] HDL cholesterol 59 >50 mg/dL [facility] [place] Triglycerides 93 <150 mg/dL [facility] [place] LDL cholesterol 147 (H) mg/dL (calc) [facility] calculated Comment: [place] Reference range: <100 Desirable range <100 mg/dL for patients with CHD or diabetes and <70 mg/dL for diabetic patients with known heart disease. The Rosio calculation is a validated novel method that provides better accuracy than the Friedewald equation in the estimation of LDL-C, particularly when TG levels are 150-400 mg/dL and LDL-C levels are lower than 70 mg/dL. Reference:Jaxson GOLDSMITH et al. Comparison of a Novel Method vs the Friedewald Equation for Estimating Low-Density Lipoprotein Cholesterol Levels From the Standard Lipid Profile. LEONARDO. 2013;310(19): 8030-1947. For additional information, please refer to http://education.[employer] [facility]/faq/OGV189 (This link is being provided for informational/ educational purposes only.) Cholesterol/HDL ratio 3.8 <5.0 (calc) [facility] [place] Non-HDL cholesterol 167 (H) <130 mg/dL [facility] Comment: (calc) RANDLE For patients with diabetes plus 1 major ASCVD risk factor, treating to a non-HDL-C goal of <100 mg/dL (LDL-C of <70 mg/dL) is considered a therapeutic option. Specimen Blood Resulting Agency Comment Performing Organization Information: Site ID: [id number] Name: [facility] Address: [address] [place] [id number] Director: Abigail Haas MD Performing Organization Address [facility] Phone Number [facility] [place] [address] [place] [phone] Comprehensive metabolic panel (05/28/2017 9:02 AM) Glucose 109 (H) 65 - 99 mg/dL [facility] Comment: [place] Fasting reference interval For someone without known diabetes, a glucose value between 100 and 125 mg/dL is consistent with prediabetes and should be confirmed with a follow-up test. BUN, whole blood 11 7 - 25 mg/dL [facility] [place] Creatinine 0.60 0.50 - 1.05 [facility] Comment: mg/dL [place] For patients >49 years of age, the reference limit for Creatinine is approximately 13% higher for people identified as -Uzbek. EGFR Non-Afr. Uzbek 100 > OR=60 [facility] mL/min/1.73m2 [place] EGFR 116 > OR=60 [facility] mL/min/1.73m2 [place] BUN/creatinine ratio NOT APPLICABLE 6 - 22 (calc) [facility] [place] Sodium 142 135 - 146 mmol/L [facility] [place] Potassium 4.2 3.5 - 5.3 mmol/L [facility] [place] Chloride 104 98 - 110 mmol/L [facility] [place] CO2 30 20 - 31 mmol/L [facility] [place] Calcium 9.6 8.6 - 10.4 mg/dL [facility] [place] Protein 7.2 6.1 - 8.1 g/dL [facility] [place] Albumin, S 4.6 3.6 - 5.1 g/dL [facility] [place] Globulin, total 2.6 1.9 - 3.7 g/dL [facility] (calc) [place] Albumin/globulin ratio 1.8 1.0 - 2.5 (calc) [facility] [place] Total bilirubin 0.6 0.2 - 1.2 mg/dL [facility] [place] Alkaline phosphatase 91 33 - 130 U/L [facility] [place] AST 17 10 - 35 U/L [facility] [place] ALT 17 6 - 29 U/L [facility] [place] Specimen Blood Resulting Agency Comment Performing Organization Information: Site ID: [id number] Name: [facility] Address: [address] [place] [address] Director: Abigail Haas MD Performing Organization Address City/State/Zipcode Phone Number [facility] [place] [address] [place] [address] after 05/05/2017 Insurance Payer Benefit Plan / Group Subscriber ID Type Phone Address KRISTI KENNEDYCHICHI PPO OPEN CHOICE xxxxxxxxx PPO Home: [address] [phone] [place] [id number] [place] [address] KJ SCHWAB [employer] Spouse 11/16/1954 [facility] [facility] [phone] [address]
--- NOTE | 2018-05-06 21:35 | RAD REPORT ---
EXAM DESCRIPTION: RAD - Chest Pa And Lat (2 Views) - 05/06/2018 9:28 pm CLINICAL HISTORY: CHEST PAIN Chest pain. COMPARISON: CHEST PA AND LAT 2 VIEW dated 05/12/2012 FINDINGS: The lungs are clear. The heart is normal in size. No displaced fractures. Cholecystectomy clips noted. Moderate hiatal hernia. IMPRESSION: Moderate hiatal hernia.
--- NOTE | 2018-05-06 21:36 | RAD REPORT ---
EXAM DESCRIPTION: RAD - Neck Soft Tissue - 05/06/2018 9:28 pm CLINICAL HISTORY: FORIEGN BODY COMPARISON: <Comparisons> FINDINGS: Prevertebral soft tissues are normal. Epiglottis and aryepiglottic folds are normal. Air c olumn is patent. No foreign body is seen.Moderate lower cervical spondylosis. IMPRESSION: Negative study.
--- NOTE | 2018-05-06 21:37 | RAD REPORT ---
EXAM DESCRIPTION: RAD - Abdomen 1 View (KUB) - 05/06/2018 9:29 pm CLINICAL HISTORY: ABD PAIN Pain COMPARISON: None FINDINGS: The bowel gas pattern is non-obstructive. No evidence of free air or pneumatosis. A needle is likely present within the stomach. No significant bony findings. Cholecystectomy clips. IMPRESSION: A needle is suspected to be within the stomach.
--- NOTE | 2018-05-06 21:49 | EDPHYS ---
Physician Documentation [facility] Name: Caterina Navarrete Age: 57 yrs Sex: Female : 1960 Arrival Date: 05/06/2018 Time: 20:16 Bed 6 Private MD: ED Physician Baldomero Baker HPI: 05/06 20:40 This 57 yrs old Female presents to ER via Ambulatory with complaints of anna POSSIBLE SWOLLED SEWING PIN. 20:40 possiblly swallowed a needle. The patient or guardian reports the patient has a anna suspected foreign body, The reported likely foreign body is sewing needle. Onset: The symptoms/episode began/occurred just prior to arrival. Current symptoms: none. Severity of symptoms: At their worst the symptoms were very mild in the emergency department the symptoms have resolved and did so just prior to arrival. The patient has not experienced similar symptoms in the past. Historical: - Allergies: 20:34 No Known Allergies; lp1 - Home Meds: 20:34 levothyroxine oral [Active]; rosuvastatin oral oral [Active]; lp1 - PMHx: 20:34 Hypothyroidism; Hyperlipidemia; lp1 - PSHx: 20:34 Rotator cuff; Cholecystectomy; lp1 - Immunization history:: Adult Immunizations up to date. - Social history:: Smoking status: Patient/guardian denies using tobacco. - Ebola Screening: : No symptoms or risks identified at this time. - Family history:: not pertinent. ROS: 20:40 Constitutional: Negative for fever, chills, and weight loss, Eyes: Negative for injury, anna pain, redness, and discharge, ENT: Negative for injury, pain, and discharge, Neck: Negative for injury, pain, and swelling, Cardiovascular: Negative for chest pain, palpitations, and edema, Respiratory: Negative for shortness of breath, cough, wheezing, and pleuritic chest pain, Abdomen/GI: Negative for abdominal pain, nausea, vomiting, diarrhea, and constipation, Back: Negative for injury and pain, : Negative for injury, bleeding, discharge, and swelling, MS/Extremity: Negative for injury and deformity, Skin: Negative for injury, rash, and discoloration, Neuro: Negative for headache, weakness, numbness, tingling, and seizure, Psych: Negative for depression, anxiety, suicide ideation, homicidal ideation, and hallucinations, Allergy/Immunology: Negative for hives, rash, and allergies, Endocrine: Negative for neck swelling, polydipsia, polyuria, polyphagia, and marked weight changes, Hematologic/Lymphatic: Negative for swollen nodes, abnormal bleeding, and unusual bruising. Exam: 20:40 Constitutional: This is a well developed, well nourished patient who is awake, alert, anna and in no acute distress. Head/Face: Normocephalic, atraumatic. Eyes: Pupils equal round and reactive to light, extra-ocular motions intact. Lids and lashes normal. Conjunctiva and sclera are non-icteric and not injected. Cornea within normal limits. Periorbital areas with no swelling, redness, or edema. ENT: Nares patent. No nasal discharge, no septal abnormalities noted. Tympanic membranes are normal and external auditory canals are clear. Oropharynx with no redness, swelling, or masses, exudates, or evidence of obstruction, uvula midline. Mucous membranes moist. Neck: Trachea midline, no thyromegaly or masses palpated, and no cervical lymphadenopathy. Supple, full range of motion without nuchal rigidity, or vertebral point tenderness. No Meningismus. Chest/axilla: Normal chest wall appearance and motion. Nontender with no deformity. No lesions are appreciated. Cardiovascular: Regular rate and rhythm with a normal S1 and S2. No gallops, murmurs, or rubs. Normal PMI, no JVD. No pulse deficits. Respiratory: Lungs have equal breath sounds bilaterally, clear to auscultation and percussion. No rales, rhonchi or wheezes noted. No increased work of breathing, no retractions or nasal flaring. Abdomen/GI: Soft, non-tender, with normal bowel sounds. No distension or tympany. No guarding or rebound. No evidence of tenderness throughout. Back: No spinal tenderness. No costovertebral tenderness. Full range of motion. Female : Normal external genitalia. Skin: Warm, dry with normal turgor. Normal color with no rashes, no lesions, and no evidence of cellulitis. MS/ Extremity: Pulses equal, no cyanosis. Neurovascular intact. Full, normal range of motion. Neuro: Awake and alert, GCS 15, oriented to person, place, time, and situation. Cranial nerves II-XII grossly intact. Motor strength 5/5 in all extremities. Sensory grossly intact. Cerebellar exam normal. Normal gait. Psych: Awake, alert, with orientation to person, place and time. Behavior, mood, and affect are within normal limits. Vital Signs: 20:32 BP 134 / 76; Pulse 103; Resp 18; Temp 98.4; Pulse Ox 97% ; Weight 79.38 kg; Height 5 ao ft. 6 in. (167.64 cm); Pain 0/10; 21:40 BP 119 / 84; Pulse 87; Resp 18; Pulse Ox 99% on R/A; mt 22:02 BP 123 / 70; Pulse 79; Resp 16; Pulse Ox 99% on R/A; mt 20:32 Body Mass Index 28.25 (79.38 kg, 167.64 cm) ao MDM: 20:26 [facility]. [facility] 20:42 Data reviewed: vital signs, nurses notes, radiologic studies, plain films. [facility] 05/06 20:40 Order name: Neck Soft Tissue XRAY [facility] 05/06 20:40 Order name: Chest Pa And Lat (2 Views) [facility] 05/06 20:40 Order name[facility]domen [facility] Administ[facility] Medications: No medications were administered Disposition: 05/06/18 21:49 Discharged to Home. Impression: Foreign body in stomach - sewing needle. - Condition is Stable. - Discharge Instructions: Swallowed Foreign Body, Adult, Swallowed Foreign Body, Adult, [id number], Foreign Body. - Medication Reconciliation Form, Thank You Letter, Antibiotic Education, Prescription Opioid Use form. - Follow up: Private Physician; When: 2 - 3 days; Reason: Recheck today's complaints, Continuance of care, Re-evaluation by your physician. Follow up: ; When: 1 - 2 days; Reason: Recheck today's complaints, Re-evaluation by your physician. Follow up: Wes Graves MD; When: 1 - 2 days; Reason: Recheck today's complaints, Re-evaluation by your physician. - Problem is new. - Symptoms have improved. Signatures: Dispatcher [employer] EDAL Baldomero Baker MD MD cha Ballard, Brenda, RN RN bb Luciana Pedroza RN RN lp1 Corrections: (The following items were deleted from the chart) 22:07 21:49 05/06/2018 21:49 Discharged to Home. Impression: Foreign body in stomach - sewing bb needle. Condition is Stable. Discharge Instructions: Swallowed Foreign Body, Adult, Swallowed Foreign Body, Adult, [id number], Foreign Body. Forms are Medication Reconciliation Form, Thank You Letter, Antibiotic Education, Prescription Opioid Use. Follow up: Private Physician; When: 2 - 3 days; Reason: Recheck today's complaints, Continuance of care, Re-evaluation by your physician. Follow up: Dr. Wes Graves; When: 1 - 2 days; Reason: Recheck today's complaints, Re-evaluation by your physician. Problem is new. Symptoms have improved. anna
--- NOTE | 2018-05-06 21:49 | ER ---
Nurse's Notes [facility] Name: Caterina Navarrete Age: 57 yrs Sex: Female : 1960 Arrival Date: 05/06/2018 Time: 20:16 Bed 6 Private MD: Diagnosis: Foreign body in stomach-sewing needle Presentation: 05/06 20:29 Presenting complaint: Patient states: States she was hanging pictures on the wall and lp1 holding sewing pins in her mouth, she's not sure if she coughed but felt like something went down her throat, concerned she may have swallowed sewing pin; Respirations unlabored, denies sore throat, shortness of breath. Transition of care: patient was not received from another setting of care. Onset of symptoms was May 06, 2018 at 20:00. Risk Assessment: Do you want to hurt yourself or someone else? Patient reports no desire to harm self or others. Initial Sepsis Screen: Does the patient meet any 2 criteria? No. Patient's initial sepsis screen is negative. Does the patient have a suspected source of infection? No. Patient's initial sepsis screen is negative. Care prior to arrival: None. 20:29 Method Of Arrival: Ambulatory lp1 20:29 Acuity: MARGARITO 3 lp1 Historical: - Allergies: 20:34 No Known Allergies; lp1 - Home Meds: 20:34 levothyroxine oral [Active]; rosuvastatin oral oral [Active]; lp1 - PMHx: 20:34 Hypothyroidism; Hyperlipidemia; lp1 - PSHx: 20:34 Rotator cuff; Cholecystectomy; lp1 - Immunization history:: Adult Immunizations up to date. - Social history:: Smoking status: Patient/guardian denies using tobacco. - Ebola Screening: : No symptoms or risks identified at this time. - Family history:: not pertinent. Screenin:34 Abuse screen: Denies threats or abuse. Denies injuries from another. Nutritional lp1 screening: No deficits noted. Tuberculosis screening: No symptoms or risk factors identified. Fall Risk None identified. Assessment: 20:34 General: Appears in no apparent distress. Behavior is appropriate for age. Pain: Denies lp1 pain. Neuro: Level of Consciousness is awake, alert, obeys commands, Oriented to person, place, time, situation. Cardiovascular: Patient's skin is warm and dry. Respiratory: Reports "I feel something further down in my throat" Airway is patent Trachea midline Respiratory effort is even, unlabored, Respiratory pattern is regular, Breath sounds are clear bilaterally. GI: : No signs and/or symptoms were reported regarding the genitourinary system. EENT: Derm: Skin is pink, warm \\T\\ dry. Musculoskeletal: No deficits noted. 21:40 Reassessment: Patient is alert, oriented x 3, equal unlabored respirations, skin lp1 warm/dry/pink. Patient returned from radiology at this time. 22:06 Reassessment: Patient is alert, oriented x 3, equal unlabored respirations, skin bb warm/dry/pink. pt verbalized understanding of and agrees to plan of care discharge instructions given pt ambulated with steady gait to exit. Vital Signs: 20:32 BP 134 / 76; Pulse 103; Resp 18; Temp 98.4; Pulse Ox 97% ; Weight 79.38 kg; Height 5 ao ft. 6 in. (167.64 cm); Pain 0/10; 21:40 BP 119 / 84; Pulse 87; Resp 18; Pulse Ox 99% on R/A; mt 22:02 BP 123 / 70; Pulse 79; Resp 16; Pulse Ox 99% on R/A; mt 20:32 Body Mass Index 28.25 (79.38 kg, 167.64 cm) ao ED Course: 20:16 Patient arrived in ED. al2 20:26 Baldomero Baker MD is Attending Physician. anna 20:29 Luciana Pedroza, RN is Primary Nurse. lp1 20:31 Triage completed. lp1 20:31 Arm band placed on left wrist. lp1 20:34 Patient has correct armband on for positive identification. Bed in low position. Call lp1 light in reach. Pulse ox on. NIBP on. 21:18 Patient moved to radiology via wheelchair. bb2 21:24 X-ray completed. Patient tolerated procedure well. bb2 21:24 Neck Soft Tissue XRAY In Process Unspecified. EDMS 21:24 Chest Pa And Lat (2 Views) XRAY In Process Unspecified. EDMS 21:24 Abdomen 1 View (KUB) XRAY In Process Unspecified. EDMS 21:43 Jennifer Egan MD is Referral Physician. [facility] 21:43 Referral Physician role handed off by Jennifer Egan MD [facility] 21:43 Wse Graves MD is Referral Physician. [facility] 22:07 No provider procedures requiring assistance completed. Patient did not have IV access bb during this emergency room visit. Administered Medications: No medications were administered Outcome: 21:49 Discharge ordered by . [facility] 22:07 Discharged to home ambulatory. bb 22:07 Condition: stable 22:07 Discharge instructions given to patient, Instructed on discharge instructions, follow up and referral plans. Demonstrated understanding of instructions, follow-up care. 22:07 Patient left the ED. bb Signatures: Dispatcher [employer] EDNJ Baldomero Baker MD MD cha Ballard, Brenda, RN RN bb Luciana Pedroza RN RN lp1 Musa Ventura RN RN ao Thompson, Moriah mt Bock, Brittany bb2 Adamaris Mejía
== END 2018-05-06 22:07 | disposition home or self-care (01) ==
LOC: ER 20:11
DX: T18.2XXA Foreign body in stomach, initial encounter (principal); E03.9 Hypothyroidism, unspecified; E78.5 Hyperlipidemia, unspecified
CPT/HCPCS: 70360; 71046; 74018; 99283